=== PATIENT | female | born 2000 | race African-American/Black ===

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

== ENCOUNTER 2019-07-06 13:01 | Emergency (ER) | payer OTHER ==
[~2019-07-06] VITALS: Ht 175.3 cm; Wt 74.8 kg
[2019-07-06 13:01] VITALS: BP 125/68
[~2019-07-06 13:01] MED LIST changes: +LEVONORGESTREL1 EAC2 PO
[2019-07-06 13:37] LABS: URINE BILIRUBIN NEGATIVE (Negative); URINE BLOOD TRACE (Negative); URINE CLARITY CLEAR; URINE COLOR YELLOW; URINE GLUCOSE-RANDOM* NEGATIVE (Negative); URINE KETONES NEGATIVE (Negative); URINE NITRITE-REFLEX NEGATIVE (Negative); URINE PROTEIN (DIPSTICK) NEGATIVE (Negative); URINE UROBILINOGEN 0.2 E.U./dl (0.2-1.0)
[2019-07-06 13:38] LABS: URINE LEUKOCYTES-REFLEX 2+ (Negative)
[2019-07-06] MEDS ORDERED: KEFLEX500 M1 PO (13:42)
[2019-07-06] MEDS ORDERED: PHENAZOPYRIDIN200 M2 PO ×2 (13:42→13:54)
[2019-07-06 13:45] LABS: CASTS None Seen /LPF (None Seen); CRYSTALS None Seen /LPF (None Seen); SQUAMOUS 4-10 Moderate /LPF (0-3); URINE RBC None Seen /HPF (0-2); URINE WBC-REFLEX 0-5 Rare /HPF (0-5)
[2019-07-06] MEDS ORDERED: MACROBID 100 M100 MG PO (13:54)
== END 2019-07-06 14:04 | disposition home or self-care (01) ==
LOC: ER 13:01
PROVIDERS: Physician Assistant
DX: N39.0 Urinary tract infection, site not specified (principal)

== ENCOUNTER 2020-04-27 09:51 | Emergency (ER) | payer OTHER ==
[~2020-04-27] VITALS: Ht 175.3 cm; Wt 79.4 kg
[~2020-04-27 09:51] MED LIST changes: +KEFLEX500 M1 PO; +MACROBID 100 M100 MG PO; +PHENAZOPYRIDIN200 M2 PO
[2020-04-27 10:23] LABS: URINE BILIRUBIN NEGATIVE (Negative); URINE BLOOD NEGATIVE (Negative); URINE CLARITY CLEAR; URINE COLOR YELLOW; URINE GLUCOSE-RANDOM* NEGATIVE (Negative); URINE KETONES 3+ (Negative); URINE LEUKOCYTES-REFLEX NEGATIVE (Negative); URINE NITRITE-REFLEX NEGATIVE (Negative); URINE PROTEIN (DIPSTICK) NEGATIVE (Negative); URINE SPECIFIC GRAVITY 1.015 (1.005-1.035); URINE UROBILINOGEN 0.2 E.U./dl (0.2-1.0)
[2020-04-27 10:49] LABS: SSA (PROTEIN CONFIRMATORY) TRACE (APPROX. 5) mg/dL (Negative); URINE REDUCING SUBSTANCE NEGATIVE
[2020-04-27 13:40] VITALS: BP 115/80
== END 2020-04-27 13:40 | disposition home or self-care (01) ==
LOC: ER 09:51
PROVIDERS: Emergency Medicine
DX: N89.8 Other specified noninflammatory disorders of vagina (principal); Z88.1 Allergy status to other antibiotic agents